=== PATIENT | female | born 1985 | race Caucasian/White ===

== ENCOUNTER 2017-12-29 03:42 | Emergency (ER) | payer OTHER ==
[~2017-12-29] VITALS: Ht 157.5 cm; Wt 66.7 kg
[2017-12-29] MEDS ORDERED: TUSSIONEX PENN115 ML PO ×2 (04:23→04:24)
[2017-12-29 04:31] VITALS: BP 168/102
== END 2017-12-29 04:31 | disposition home or self-care (01) ==
LOC: M.ERS 03:42
DX: R05 Cough (principal); I10 Essential (primary) hypertension; E11.9 Type 2 diabetes mellitus without complications; E03.9 Hypothyroidism, unspecified; F17.210 Nicotine dependence, cigarettes, uncomplicated

== ENCOUNTER 2018-07-01 12:12 | Emergency (ER) | payer OTHER, MEDICAID ==
[~2018-07-01] VITALS: Ht 157.5 cm; Wt 66.7 kg
[~2018-07-01 12:12] MED LIST: TUSSIONEX PENN115 ML PO
[2018-07-01] MEDS ORDERED: PROGESTERONE100 MG PO (12:27)
[2018-07-01] MEDS ORDERED: LABETALOL HCL100 MG PO (12:27)
[2018-07-01] MEDS ORDERED: PRENATAL PO (12:28)
[2018-07-01 12:56] LABS: URINE BLOOD NEGATIVE (Negative); URINE CLARITY CLEAR; URINE COLOR YELLOW; URINE GLUCOSE-RANDOM NEGATIVE (Negative); URINE KETONES TRACE (Negative); URINE LEUKOCYTES-REFLEX NEGATIVE (Negative); URINE NITRITE-REFLEX NEGATIVE (Negative); URINE PROTEIN 1+ (Negative); URINE SPECIFIC GRAVITY >= 1.030 (1.005-1.030)
[2018-07-01 12:57] LABS: ABSOLUTE EOSINOPHILS 0.1 thou/uL (0.0-0.7); ABSOLUTE MONOCYTES 0.3 thou/uL (0.0-1.2); ABSOLUTE NEUTROPHILS 3.7 thou/uL (1.6-8.1); BASOPHILS 0.4 %; EOSINOPHILS 1.1 %; HEMATOCRIT 39.2 % (37.0-47.0); HEMOGLOBIN 13.8 gm/dL (12.0-15.0); LYMPHOCYTES 19.5 %; MCH 30.7 pg (26.0-34.0); MCHC 35.2 g/dL (28.0-37.0); MONOCYTES 6.2 %; MPV 7.7 fl. (7.2-11.1); NUCLEATED RBCS 0 /100WBC; PLATELET COUNT* 161 thou/uL (150-400); POLYS 72.8 %; RDW-CV 13.9 % (10.5-14.5)
[2018-07-01 13:00] LABS: ICTOTEST (BILI CONFIRMATORY) Negative (Negative); URINE BILIRUBIN 1+ (Negative)
[2018-07-01 13:05] LABS: CALCIUM 7.9 mg/dL (8.5-10.1); CREATININE 0.5 mg/dL (0.6-1.3); POTASSIUM 3.5 mmol/L (3.5-5.1); TOTAL BILIRUBIN 0.4 mg/dL (<0.1-1.0); TOTAL PROTEIN 6.8 g/dL (6.4-8.2)
[2018-07-01] MEDS ORDERED: DICLEGIS DR 101 EACH PO (13:10)
[2018-07-01 13:45] VITALS: BP 121/67
== END 2018-07-01 13:45 | disposition home or self-care (01) ==
LOC: M.ERS 12:12
PROVIDERS: Physician Assistant
DX: O21.8 Other vomiting complicating pregnancy (principal); O16.1 Unspecified maternal hypertension, first trimester; O24.911 Unspecified diabetes mellitus in pregnancy, first trimester; O99.611 Diseases of the digestive system complicating pregnancy, first trimester; O99.331 Smoking (tobacco) complicating pregnancy, first trimester; Z3A.13 13 weeks gestation of pregnancy

== ENCOUNTER 2019-02-25 09:25 | Emergency (ER) | payer OTHER ==
[~2019-02-25] VITALS: Ht 157.5 cm; Wt 75.3 kg
[~2019-02-25 09:25] MED LIST changes: +DICLEGIS DR 101 EACH PO; +LABETALOL HCL100 MG PO; +PRENATAL PO; +PROGESTERONE100 MG PO
[2019-02-25] MEDS ORDERED: PRINIVIL10 MG PO (09:35)
[2019-02-25] MEDS ORDERED: AZITHROMYCIN 2250 MG PO (09:38)
[2019-02-25 10:20] VITALS: BP 153/96
== END 2019-02-25 10:21 | disposition home or self-care (01) ==
LOC: M.ERS 09:25
DX: J40 Bronchitis, not specified as acute or chronic (principal); I10 Essential (primary) hypertension; E11.9 Type 2 diabetes mellitus without complications; E03.9 Hypothyroidism, unspecified; F17.210 Nicotine dependence, cigarettes, uncomplicated

== ENCOUNTER 2019-08-25 00:18 | Emergency (ER) | payer OTHER, MEDICAID ==
[~2019-08-25] VITALS: Ht 157.5 cm; Wt 72.6 kg
[~2019-08-25 00:18] MED LIST changes: +AZITHROMYCIN 2250 MG PO; +PRINIVIL10 MG PO
[2019-08-25 01:29] LABS: ABSOLUTE EOSINOPHILS 0.1 thou/uL (0.0-0.7); ABSOLUTE LYMPHOCYTES 3.9 thou/uL (0.8-5.3); ABSOLUTE MONOCYTES 0.7 thou/uL (0.0-1.2); ABSOLUTE NEUTROPHILS 5.9 thou/uL (1.6-8.1); BASOPHILS 0.4 %; EOSINOPHILS 1.4 %; HEMATOCRIT 40.9 % (37.0-47.0); HEMOGLOBIN 14.5 gm/dL (12.0-15.0); LYMPHOCYTES 36.3 %; MCH 30.5 pg (26.0-34.0); MCHC 35.5 g/dL (28.0-37.0); MONOCYTES 6.2 %; MPV 8.3 fl. (7.2-11.1); NUCLEATED RBCS 0 /100WBC; PLATELET COUNT* 250 thou/uL (150-400); POLYS 55.7 %; RBC 4.76 mil/uL (4.20-5.00); RDW-CV 13.6 % (10.5-14.5); WBC 10.7 thou/uL (4.0-11.0)
[2019-08-25 01:35] LABS: PROTIME 10.5 Seconds (9.20-11.50)
[2019-08-25 01:39] LABS: CALCIUM 8.5 mg/dL (8.5-10.1); CREATININE 0.7 mg/dL (0.6-1.3); POTASSIUM 3.3 mmol/L (3.5-5.1)
[2019-08-25 01:44] LABS: ALBUMIN 3.6 g/dL (3.4-5.0); TOTAL BILIRUBIN 0.3 mg/dL (<0.1-1.0); TOTAL PROTEIN 7.2 g/dL (6.4-8.2)
[2019-08-25] MEDS ORDERED: HYDROCODONE-ACE15 ML PO (03:54)
[2019-08-25] MEDS ORDERED: PREDNISONE50 MG PO (03:57)
[2019-08-25] MEDS ORDERED: PRINIVIL10 MG PO (04:00)
[2019-08-25 04:05] VITALS: BP 172/111
--- NOTE | 2019-08-26 08:54 | EKG ---
[place] [address] ELECTROCARDIOGRAM REPORT Name: ANDERSONCHRISTINA Moreno Room: [facility]#: [id number] Admission: 08/25/19 Attend Phys: Discharge: 08/25/19 Date of : 85 Date of Service: 08/25/19 0024 Report #: [id number] THIS REPORT FOR: //name// [facility] ED Test Date: 2019-08-25 Test Time: 00:24:19 Pat Name: CHRISTINA BARRON Department: Room: Gender: Coal Miner: : 1985 Requested By: Leonor Orr Order Number: [id number] Estelita MD: Thaddeus Peace Measurements Intervals [place] Rate: 89 P: 48 MD: 152 QRS: 46 QRSD: 86 T: 34 QT: 360 QTc: 439 Interpretive Statements Sinus rhythm Possible left atrial enlargement No previous ECG available for comparison Electronically Signed On 08-26-2019 8:53:45 CDT by Thaddeus Peace [email or web address] <ELECTRONICALLY SIGNED> By: Thaddeus Peace MD, [facility] 08/26/19 0853 D: 06/23 Thaddeus Peace MD, FACC /EPI
== END 2019-08-25 04:06 | disposition home or self-care (01) ==
LOC: M.ERS 00:18
PROVIDERS: Emergency Medicine
DX: R04.2 Hemoptysis (principal); I10 Essential (primary) hypertension; E11.9 Type 2 diabetes mellitus without complications; R07.89 Other chest pain; E03.9 Hypothyroidism, unspecified; F12.10 Cannabis abuse, uncomplicated; Z20.828 Contact with and (suspected) exposure to other viral communicable diseases; Z79.899 Other long term (current) drug therapy

== ENCOUNTER 2020-09-11 19:09 | Emergency (ER) | payer OTHER ==
[~2020-09-11] VITALS: Ht 157.5 cm; Wt 79.4 kg
[~2020-09-11 19:09] MED LIST changes: +HYDROCODONE-ACE15 ML PO; +PREDNISONE50 MG PO
[2020-09-11 20:33] VITALS: BP 180/126
== END 2020-09-11 20:33 | disposition left against medical advice (07) ==
LOC: M.ERS 19:09
DX: Z53.21 Procedure and treatment not carried out due to patient leaving prior to being seen by health care provider (principal)